=== PATIENT | female | born 1975 | race Two or more races ===

== ENCOUNTER 2024-02-19 05:19 | Day surgery (SDC) | payer OTHER ==
[2024-02-12 13:45] VITALS: BMI 21.4
[2024-02-19 12:20] VITALS: TEMP 97.5
[2024-02-19 13:11] VITALS: BP 113/69; PULSE 55; RESP 16
== END 2024-02-19 13:20 | disposition home or self-care (01) ==
LOC: JASU-ENDO 05:19
PROVIDERS: ATTEND Internal Medicine Gastroenterology
PROC: 0DB98ZX Excision of Duodenum, Via Natural or Artificial Opening Endoscopic, Diagnostic (ICD-10-PCS; 2024-02-19)
PROC: 0DB68ZX Excision of Stomach, Via Natural or Artificial Opening Endoscopic, Diagnostic (ICD-10-PCS; 2024-02-19)
PROC: 0DJD8ZZ Inspection of Lower Intestinal Tract, Via Natural or Artificial Opening Endoscopic (ICD-10-PCS; principal; 2024-02-19 11:00)
DX: Z12.11 Encounter for screening for malignant neoplasm of colon (principal); K59.89 Other specified functional intestinal disorders; K29.50 Unspecified chronic gastritis without bleeding
CPT/HCPCS: 88305-TC; 88342-TC